=== PATIENT | female | born 1965 | race Caucasian/White ===

== ENCOUNTER 2018-04-22 04:21 | Emergency (ER) | payer MEDICAID ==
[2018-04-22] MEDS: DEXAMETHASONE 10 MG/ML 1 ML INJ IM (05:02)
[2018-04-22] MEDS: RACEPINEPHRINE 2.25%(NEB) 0.5 ML AMP HHN (05:21)
[2018-04-22] MEDS: LORAZEPAM 0.5 MG TAB PO (05:22)
[2018-04-22] MEDS: IBUPROFEN 600 MG TAB PO (05:22)
== END 2018-04-22 05:59 | disposition home or self-care (01) ==
LOC: FTE 04:21
DX: J02.9 Acute pharyngitis, unspecified (principal); R06.02 Shortness of breath
CPT/HCPCS: 70360; 94664; 96372; 99284-25